=== PATIENT | male | born 2000 | race Caucasian/White ===

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

== ENCOUNTER 2018-07-01 21:09 | Emergency (ER) | payer OTHER ==
[2018-07-01] MEDS ORDERED: MORPHINE SULFATE 4 MG/ML SYRINGE IVP STA (21:39)
[2018-07-01] MEDS ORDERED: KETOROLAC 30 MG/ML 1 ML VIAL IVP STA (21:40)
[2018-07-01] MEDS ORDERED: ONDANSETRON 4 MG/2 ML VIAL IVP STA (21:59)
--- NOTE | 2018-07-01 22:37 | XR ---
EXAM: XR Left Knee, 3 views CLINICAL HISTORY: Pain TECHNIQUE: Three views of the left knee. COMPARISON: No relevant prior studies available. FINDINGS: Bones/joints: Lateral dislocation of the patella. No definite evidence of fracture. Soft tissues: Unremarkable. IMPRESSION: 1. Lateral dislocation of the patella. 2. No definite evidence of fracture.
[2018-07-01] MEDS ORDERED: ACET/COD 300 MG/30 MG STARTER PACK 6 TAB BTL PO STA (23:03)
--- NOTE | 2018-07-01 23:05 | ED ---
Lower Extremity Injury HPI - General Source: patient, family, RN/MD, RN notes reviewed, old records reviewed Mode of arrival: ambulatory Limitations: no limitations <Kim Sterling - Last Filed: 07/02/18 03:23> <Ced Andrade - Last Filed: 07/03/18 07:59> - General Chief Complaint: Extremity Injury, Lower Stated Complaint: knee injury Time Seen by Provider: 07/01/18 21:23 - History of Present Illness Initial Comments: 17-year-old male with sensory syrup today with left knee pain. Patient tripped and fell while playing basketball. He is evidence of the the Patient. Patient reports he is not able to ambulate. Patient does not follow with orthopedic doctor. He reports previous left knee sprains. Patient denies any recent fever, chills, shortness of breath, chest pain, back pain, abdominal pain, nausea vomiting, numbness or tingling, dysuria or hematuria, constipation or diarrhea, headaches or visual changes, or any other current symptoms (Kim Sterling) - Related Data Home Medications Medication Instructions Recorded Confirmed No Known Home Medications 03/27/16 07/01/18 Allergies Allergy/AdvReac Type Severity Reaction Status Date / Time No Known Allergies Allergy Verified 07/01/18 21:50 Review of Systems ROS Other: All systems not noted in ROS Statement are negative. <Kim Sterling - Last Filed: 07/02/18 03:23> ROS Other: All systems not noted in ROS Statement are negative. <Ced Andrade - Last Filed: 07/03/18 07:59> ROS Statement: Those systems with pertinent positive or pertinent negative responses have been documented in the HPI. Past Medical History Past Medical History: No Reported History History of Any Multi-Drug Resistant Organisms: None Reported Past Surgical History: No Surgical Hx Reported Past Psychological History: No Psychological Hx Reported Smoking Status: Never smoker Past Alcohol Use History: None Reported Past Drug Use History: None Reported <Kim Sterling - Last Filed: 07/02/18 03:23> General Exam Limitations: no limitations General appearance: alert, in no apparent distress Head exam: Present: atraumatic, normocephalic, normal inspection Eye exam: Present: normal appearance ENT exam: Present: normal exam Neck exam: Present: normal inspection. Absent: tenderness, meningismus, lymphadenopathy Respiratory exam: Present: normal lung sounds bilaterally. Absent: respiratory distress, wheezes, rales, rhonchi, stridor Cardiovascular Exam: Present: regular rate, normal rhythm, normal heart sounds. Absent: systolic murmur, diastolic murmur, rubs, gallop, clicks GI/Abdominal exam: Present: soft, normal bowel sounds. Absent: distended, tenderness, guarding, rebound, rigid Left Knee exam: Present: tenderness (over patella), dislocation (Left lateral patellar dislocation.). Absent: normal inspection, full ROM Lower Leg exam: Present: normal inspection, full ROM Ankle exam: Present: normal inspection, full ROM Foot/Toe exam: Present: normal inspection, full ROM Back exam: Present: normal inspection Neurological exam: Present: alert, oriented X3, CN II-XII intact Psychiatric exam: Present: normal affect Skin exam: Present: warm, dry, intact, normal color. Absent: rash <Kim Sterling - Last Filed: 07/02/18 03:23> - General Exam Comments Initial Comments: 17-year-old male. Alert and oriented. No distress. (Kim Sterling) Course Vital Signs 07/01/18 07/01/18 21:18 23:50 Temperature 98.0 F 97.3 F L Pulse Rate 91 70 Respiratory 20 16 Rate Blood Pressure 116/66 113/74 O2 Sat by Pulse 99 98 Oximetry Procedures - Orthopedic Joint Reduction Joint #1 Side: left Joint Reduction Location: knee/patella Shoulder Technique Used (if applicable): traction/counter-traction Post-Reduction Neuro Exam: intact Post-Reduction Vascular Exam: intact Post Reduction X-Ray Obtained: No Splint Applied: Yes (knee immobilizer) Patient Tolerated Procedure: well, no complications <Kim Sterling - Last Filed: 07/02/18 03:23> Medical Decision Making <Kim Sterling - Last Filed: 07/02/18 03:23> <Ced Andrade - Last Filed: 07/03/18 07:59> - Medical Decision Making Patient is a 17-year-old male presents emergency department today with left patellar dislocation. Patient was playing basketball when he is tripped and landed on his knee. He had a lateral patellar dislocation. After IV was established Patient is given pain meds. Patient's knee was easily relocated with slight retraction. He's placed in the immobilizer. Discussed Patient follow-up with orthopedic doctor. Patient denies using exam finds her medicine. All questions answered return parameters were discussed. (Kim Sterling) I saw this patient in conjunction with the physician geriatric nurse assistant. I performed independent history and physical exam. Agree with case management. In conjunction with the physician geriatric nurse assistant, the patient's patella was reduced without any complication and he was placed into the knee immobilizer. (Ced Honeycutt) Disposition Is patient prescribed a controlled substance at d/c from ED?: No Time of Disposition: 23:05 <Kim Sterling - Last Filed: 07/02/18 03:23> <Ced Andrade - Last Filed: 07/03/18 07:59> Clinical Impression: Dislocation of patella, left, closed Disposition: HOME SELF-CARE Condition: Good Instructions (If sedation given, give patient instructions): Patellar Dislocation (ED) Additional Instructions: Patient advised to wear the knee immobilizer and ambulate with crutches. Take Motrin for pain. Use the starter pack for pain medicine as needed. Follow-up with orthopedic. Ice the knee. Return to the emergency department if any alarming signs or symptoms occur. Referrals: Lam Razo MD [Primary Care Provider] - 1-2 days Preet Raygoza MD [STAFF PHYSICIAN] - 1-2 days
[2018-07-01 23:51] VITALS: BP 113/74; PULSE 70; RESP 16; TEMP 97.3
== END 2018-07-01 23:51 | disposition home or self-care (01) ==
LOC: EC 21:09
DX: S83.015A Lateral dislocation of left patella, initial encounter (principal); W01.0XXA Fall on same level from slipping, tripping and stumbling without subsequent striking against object, initial encounter; Y93.67 Activity, basketball; Y92.39 Other specified sports and athletic area as the place of occurrence of the external cause
CPT/HCPCS: 99284; 27560; 96374; 96375 ×2; 73560; J2270; J2405; J1885